=== PATIENT | male | born 1955 | race Caucasian/White ===

== ENCOUNTER → 2016-07-25 | Outpatient (CLI) | payer OTHER | LOC: KOH-I 07-08 13:00 | DX: R94.6 Abnormal results of thyroid function studies (principal); E05.90 Thyrotoxicosis, unspecified without thyrotoxic crisis or storm; E04.2 Nontoxic multinodular goiter | CPT/HCPCS: 76536 ==

== ENCOUNTER 2016-09-22 21:04 | Emergency (ER) | payer OTHER | END 2016-09-22 23:50 | disposition left against medical advice (07) | LOC: ER1 21:04 | DX: Z53.21 Procedure and treatment not carried out due to patient leaving prior to being seen by health care provider (principal) ==

== ENCOUNTER → 2016-10-10 | Outpatient (CLI) | payer OTHER | LOC: KOH-I 10-03 13:00 | DX: M54.6 Pain in thoracic spine (principal); M54.2 Cervicalgia; M54.5 Low back pain; M25.78 Osteophyte, vertebrae; M99.41 Connective tissue stenosis of neural canal of cervical region; M51.34 Other intervertebral disc degeneration, thoracic region; M51.26 Other intervertebral disc displacement, lumbar region; M99.53 Intervertebral disc stenosis of neural canal of lumbar region | CPT/HCPCS: 72125; 72128; 72131 ==

== ENCOUNTER → 2021-09-19 | Outpatient (CLI) | payer OTHER | LOC: HEART 5 09-17 08:15 | DX: I20.9 Angina pectoris, unspecified (principal); R94.31 Abnormal electrocardiogram [ECG] [EKG] | CPT/HCPCS: 78452; A9502; J2785 ==

== ENCOUNTER 2021-09-26 13:03 | Inpatient (IN) | payer OTHER ==
[~2021-09-26] VITALS: Ht 175.3 cm; Wt 65.8 kg
[2021-09-26 15:38] LABS: RED BLOOD COUNT 4.28 M/UL (4.20-5.50); WHITE BLOOD COUNT 7.9 K/UL (4.5-11.0)
[2021-09-26 16:21] LABS: BUN/CREATININE RATIO 14 (0-10)
[2021-09-26] MEDS ORDERED: GABAPENTIN800 MG PO (23:35)
[2021-09-26] MEDS ORDERED: HYDROCODON-ACE1 EAC2 PO (23:36)
--- NOTE | 2021-09-27 00:34 | NUR ---
APPROX 2340 WHILE DOING ASSESMENT PT AND STATE THAT PT TOOK A NITRO 10 MINS AGO DUE TO CHEST PAIN, PT STATES THE PRESSURE HAS DECREASE AND HE FEELS FIND NOW. PT STATES HE HAS HIS OWN NITRO. ADVISED PT TO NOTIFY ME IF IT HAPPENS AGAIN. PT SHOWS NO SIGNS OF DISTRESS AT THIS TIME.
[2021-09-27 06:38] LABS: HEMOGLOBIN 12.5 gm/dl (14.0-17.5); RED BLOOD COUNT 4.11 M/UL (4.20-5.50); WHITE BLOOD COUNT 8.3 K/UL (4.5-11.0)
[2021-09-27 07:11] LABS: BUN/CREATININE RATIO 15 (0-10)
[2021-09-27] MEDS ORDERED: PROAIR HFA8.5 GM INH (10:26)
[2021-09-27] MEDS ORDERED: ATORVASTATIN CA20 MG PO (10:27)
[2021-09-27] MEDS ORDERED: DAPSONE25 MG PO (10:28)
[2021-09-27] MEDS ORDERED: IBUPROFEN800 MG PO (10:29)
[2021-09-27] MEDS ORDERED: LOPRESSOR 25 MG25 MG PO (10:30)
[2021-09-27] MEDS ORDERED: NITROGLYCERIN0.4 MG SL (10:34)
[2021-09-27] MEDS ORDERED: ISOSORBIDE MONO30 MG PO (10:37)
[2021-09-27] MEDS ORDERED: TIZANIDINE HCL4 MG PO (10:37)
== END 2021-09-27 16:10 | disposition home or self-care (01) | DRG 287 ==
LOC: ER1 13:03 → MED SURG 4 19:11 → CDU 19:11 → MED SURG 4 22:35
PROVIDERS: Student in an Organized Health Care Education/Training Program; ADMIT Internal Medicine
PROC: B24BZZZ Ultrasonography of Heart with Aorta (ICD-10-PCS; principal; 2021-09-27)
PROC: 4A023N7 Measurement of Cardiac Sampling and Pressure, Left Heart, Percutaneous Approach (ICD-10-PCS; 2021-09-27)
PROC: B2111ZZ Fluoroscopy of Multiple Coronary Arteries using Low Osmolar Contrast (ICD-10-PCS; 2021-09-27)
DX: I25.5 Ischemic cardiomyopathy (principal); M54.9 Dorsalgia, unspecified; Z20.822 Contact with and (suspected) exposure to COVID-19; G89.29 Other chronic pain; I25.82 Chronic total occlusion of coronary artery; F17.200 Nicotine dependence, unspecified, uncomplicated; R00.1 Bradycardia, unspecified; I20.9 Angina pectoris, unspecified; Z98.52 Vasectomy status; Z90.49 Acquired absence of other specified parts of digestive tract; Z82.49 Family history of ischemic heart disease and other diseases of the circulatory system; Z79.82 Long term (current) use of aspirin; Z79.899 Other long term (current) drug therapy
CPT/HCPCS: 71045; 80048; 80053; 82550; 82553; 83735; 84484; 85025; 85027; 93005; 93308; 99152; 99153; 99285; C1769; C1887; C1894; J0461; J1644; J2250; J3010; J7040; Q9967